=== PATIENT | male | born 1960 | race Caucasian/White ===

== ENCOUNTER → 2017-08-26 | Outpatient (CLI) | payer BC ==
--- NOTE | 2017-08-26 13:34 | Diagnostic Imaging Report ---
INDICATION: Cervicalgia. Limited range of motion. COMPARISON: None. FINDINGS: Frontal, lateral, and odontoid views of the cervical spine were submitted. The cervical spine is visualized up to the C7/T1 level on the lateral projection. There is normal vertebral height and alignment. There is no evidence of fracture or bone destruction. No prevertebral soft tissue swelling is seen. There are mild multilevel degenerative changes consisting of intervertebral disc height loss with anterior and posterior disc osteophyte complex formations. These changes appear greatest at the C6-C7 level. The open-mouth view demonstrates normal C1/C2 alignment. IMPRESSION: 1. No evidence of acute fracture or dislocation of the cervical spine. 2. Mild degenerative changes, greatest at the C6-C7 level. Dictated by: Dictated on workstation # [id number]
== END ==
LOC: RAD 11:04
DX: M47.812 Spondylosis without myelopathy or radiculopathy, cervical region (principal)
CPT/HCPCS: 72040

== ENCOUNTER → 2017-09-03 | Outpatient (CLI) | payer BC ==
--- NOTE | 2017-09-03 10:28 | Diagnostic Imaging Report ---
PROCEDURE: MR imaging cervical spine without contrast. TECHNIQUE: Multiplanar, multisequence MR imaging of the cervical spine was performed without contrast. INDICATION: Neck pain. COMPARISON: Cervical spine radiographs 08/26/2017. FINDINGS: Normal alignment. Vertebral body heights are preserved. Modic type II degenerative endplate changes at C6-C7. Bone marrow signal is otherwise unremarkable. No abnormal signal in the cervical spinal cord. The visualized paravertebral soft tissues are unremarkable. The carotid cervical and vertebral artery flow voids are preserved. C2-C3: No spinal canal or neural foraminal narrowing. C3-C4: No spinal canal narrowing. Uncovertebral joint hypertrophy contributes to moderate left neural foraminal narrowing. C4-C5: Posterior disc osteophyte complex results in mild spinal canal narrowing. Uncovertebral and facet arthropathy result in moderate right and advanced left neural foraminal narrowing. C5-C6: Posterior disc osteophyte complex and ligamentous hypertrophy result in advanced spinal canal narrowing. There is also advanced bilateral neural foraminal narrowing. C6-C7: Posterior disc osteophyte complex and ligamentous hypertrophy result in moderate spinal canal narrowing. Uncovertebral hypertrophy results in advanced bilateral neural foraminal narrowing. C7-T1: Posterior disc osteophyte complex results in moderate spinal canal narrowing. Uncovertebral and facet arthropathy result in advanced right and moderate left neural foraminal narrowing. IMPRESSION: 1. Spondylotic changes result in multilevel spinal canal narrowing which is greatest at C5-C6 where it is advanced. 2. Diffuse moderate and advanced neural foraminal narrowing detailed above. 3. No abnormal signal in the cervical spinal cord. Dictated by: Dictated on workstation # [id number]
== END ==
LOC: RAD 09:16
DX: M48.03 Spinal stenosis, cervicothoracic region (principal); M46.83 Other specified inflammatory spondylopathies, cervicothoracic region; M47.812 Spondylosis without myelopathy or radiculopathy, cervical region
CPT/HCPCS: 72141

== ENCOUNTER → 2017-09-26 | Outpatient (CLI) | payer BC ==
[~2017-09-26] MED LIST: GADOBUTROL 10 MMOL/10 ML (GADAVIST) VIAL IV ONE
--- NOTE | 2017-09-26 15:04 | Diagnostic Imaging Report ---
PROCEDURE: MR imaging of the brain with and without contrast. TECHNIQUE: Multiplanar, multisequence MR imaging of the brain was performed with and without contrast. INDICATION: Headaches. Dizziness. COMPARISON: None. FINDINGS: Mild nonspecific T2 hyperintensities in the supratentorial white matter. Mild generalized cerebral and cerebellar parenchymal volume loss. No other abnormal intracranial signal or enhancement. No restricted water diffusion or hemosiderin deposition. Normal morphology including the major midline structures, sella and cerebellar pontine angle. Borderline cerebellar ectopia without crowding of the foramen magnum. The orbits are unremarkable on this nondedicated exam. Normal intracranial flow voids. No hydrocephalus or extra-axial fluid collections. The paranasal sinuses are clear. Scant fluid in the right mastoid is of doubtful clinical significance. Normal bone marrow signal. IMPRESSION: 1. No acute intracranial MRI findings. 2. 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 3. Incidental findings as above. Dictated by: Dictated on workstation # [id number]
== END ==
LOC: RAD 13:11
DX: G93.89 Other specified disorders of brain (principal)
CPT/HCPCS: 70553

== ENCOUNTER → 2018-03-17 | Outpatient (CLI) | payer BC ==
--- NOTE | 2018-03-17 10:37 | Diagnostic Imaging Report ---
PROCEDURE: MR imaging cervical spine without contrast. TECHNIQUE: Multiplanar, multisequence MR imaging of the cervical spine was performed without contrast. INDICATION: Neck pain. COMPARISON: Comparison made with prior examination 09/03/2017. FINDINGS: The alignment of cervical spine is normal. Vertebral body heights are well-maintained. Prevertebral soft tissues are within normal limits. Posterior fossa is unremarkable. Visualized portions of the spinal cord are normal in signal intensity and morphology. C2-3 is unremarkable. At C3-4, there is some minimal annular bulging and mild left uncovertebral joint hypertrophy. There is slight effacement of the ventral thecal sac and mild left neural foraminal encroachment. C4-5 is unremarkable. At C5-6, there is broad-based annular bulging and bilateral uncovertebral joint hypertrophy. There is moderate central spinal stenosis and at least moderate bilateral neural foraminal encroachment. At C6-7, there is broad-based annular bulging and bilateral uncovertebral joint hypertrophy left greater than right. There is moderate central spinal stenosis with moderate bilateral neural foraminal encroachment. At C7-T1, there is broad-based annular bulging and bilateral uncovertebral joint hypertrophy right greater than left. There is mild central spinal stenosis. There is moderate right and mild left neural foraminal encroachment. IMPRESSION: Diffuse cervical spondylosis and multilevel degenerative disc disease as detailed above. Dictated by: Dictated on workstation # [id number]
== END ==
LOC: RAD 07:52
PROVIDERS: ATTEND Orthopaedic Surgery Orthopaedic Surgery of the Spine
DX: M48.03 Spinal stenosis, cervicothoracic region (principal); M47.812 Spondylosis without myelopathy or radiculopathy, cervical region; M99.71 Connective tissue and disc stenosis of intervertebral foramina of cervical region; M50.23 Other cervical disc displacement, cervicothoracic region; M50.30 Other cervical disc degeneration, unspecified cervical region
CPT/HCPCS: 72141

== ENCOUNTER → 2020-04-11 | Outpatient (CLI) | payer BC ==
[~2020-04-11] MED LIST changes: -GADOBUTROL 10 MMOL/10 ML (GADAVIST) VIAL IV ONE; +HOLD METFORMIN - RECEIVED CONTRAST 20 ML VIAL IV SCH; +IOHEXOL 350 MG/ML 100 ML (OMNIPAQUE 350) VIAL IV ONE; +NS 100 ML (IVPB) BAG IV ONE
--- NOTE | 2020-04-11 09:36 | Diagnostic Imaging Report ---
PROCEDURE: CT neck soft tissue with contrast. TECHNIQUE: Multiple contiguous axial images were obtained through the neck after the administration of contrast. Auto Exposure Controls were utilized during the CT exam to meet ALARA standards for radiation dose reduction. INDICATION: Right-sided swelling COMPARISON: There are no prior studies available for comparison. FINDINGS: Reportedly, the patient has right-sided facial swelling and mass on the right. A marker was placed at the area of concern; however, there is no discrete solid or cystic mass in this region. There does not appear to be any significant distortion of the fat in this area to suggest an inflammatory/infectious process either. There is no mass or adenopathy noted. The submandibular glands are normal in size and symmetrical in appearance. The thyroid gland is not enlarged. The thyroid gland is partially obscured by streak artifact but there is no clear evidence for a thyroid nodule. The lung apices are clear. The bone windows show no evidence for fracture or destructive lesion. There are interbody devices in place at C5-6 and C6-7. The intracranial contents, where visualized, are unremarkable. IMPRESSION: 1. There is no discrete solid or cystic mass in the area of the patient's palpable abnormality in the right neck. Clinical followup is recommended. 2. There is no other mass or adenopathy identified and there is no sign of an acute abnormality. 3. There are post surgical changes involving the cervical spine. Dictated by: Dictated on workstation # [id number]
== END ==
LOC: RAD 08:14
DX: R22.1 Localized swelling, mass and lump, neck (principal); Z98.1 Arthrodesis status
CPT/HCPCS: 70491

== ENCOUNTER → 2020-04-21 | Outpatient (CLI) | payer BC ==
--- NOTE | 2020-04-21 10:10 | Diagnostic Imaging Report ---
INDICATION: Injury to the right shoulder. Time of exam: 9:22 AM 3 views of the right shoulder were obtained. There is normal glenohumeral alignment. There is a normal acromioclavicular alignment. The acromiohumeral space is normal. No fracture or dislocation is identified. Imaging through the lung bases does show a nodular density. This appears to be fairly dense and may represent a granuloma. However, correlation with prior chest radiographs, if available, would be recommended. IMPRESSION: 1. No acute bony abnormality is detected. 2. Nodular density right lung base. This may represent a granuloma. Correlation with prior outside studies is recommended. If no prior imaging is available, close interval follow-up with serial chest radiographs could be obtained to confirm stability. Dictated by: Dictated on workstation # [id number]
--- NOTE | 2020-04-21 10:12 | Diagnostic Imaging Report ---
INDICATION: Pain and injury to the right clavicle. TIME OF EXAM: 9:20 AM 2 views right clavicle were obtained. FINDINGS: The acromioclavicular alignment is normal. The clavicle appears to be intact. No clavicle fracture is identified. IMPRESSION: No acute bony abnormality is detected. Dictated by: Dictated on workstation # [id number]
== END ==
LOC: RAD 09:01
DX: S49.91XA Unspecified injury of right shoulder and upper arm, initial encounter (principal); J98.4 Other disorders of lung
CPT/HCPCS: 73000; 73030

== ENCOUNTER → 2020-12-13 | Outpatient (CLI) | payer BC ==
--- NOTE | 2020-12-13 11:13 | Diagnostic Imaging Report ---
PROCEDURE: MR imaging cervical spine without contrast. TECHNIQUE: Multiplanar, multisequence MR imaging of the cervical spine was performed without contrast. INDICATION: Neck pain. Patient has had prior cervical spine surgery. Correlation is made with preoperative cervical spine MRI from 03/17/2018. Curvature and alignment of the cervical spine is normal. Since the prior study patient has undergone cervical spine surgery. There appear to be postoperative changes with prosthetic discs at the C5-C6 and C6-C7 levels. These do create moderate artifact. Artifact does obscure these levels. Additional levels demonstrate normal marrow signal. No fracture is seen. No geographic marrow lesion is identified. There is some generalized disc desiccation likely owing to degenerative disc disease. The cervical cord does show homogeneous signal intensity and normal morphology. Craniocervical junction is unremarkable. C2-C3: The central canal and neural foramina are widely patent. C3-C4: Central canal and neural foramina appear to be widely patent. C4-C5: Uncovertebral joint degenerative change does produce moderate narrowing of the neural foramina bilaterally. Broad-based disc/osteophyte complex flattens the ventral thecal sac but central canal remains patent. C5-C6: Central canal and neural foramina are patent. C6-C7: This level is obscured by artifact but no gross abnormality is identified. C7-T1: There appears to be bilateral neural foraminal narrowing due to uncovertebral joint degenerative change. Central canal is patent. IMPRESSION: Postop changes at C5-C6 and C6-C7 levels. There is neural foraminal narrowing described level by level above. No significant central canal stenosis is detected. Dictated by: Dictated on workstation # [id number]
== END ==
LOC: RAD 10:15
PROVIDERS: ATTEND Physician Assistant
DX: M48.02 Spinal stenosis, cervical region (principal)
CPT/HCPCS: 72141

== ENCOUNTER → 2021-04-04 | Outpatient (CLI) | payer BC | LOC: LABNPT 06:34 | PROVIDERS: ATTEND Orthopaedic Surgery | DX: Z01.812 Encounter for preprocedural laboratory examination (principal); Z20.822 Contact with and (suspected) exposure to COVID-19 | CPT/HCPCS: 87635 ==

== ENCOUNTER → 2021-06-22 | Outpatient (CLI) | payer BC | LOC: LABNPT 05:58 | PROVIDERS: ATTEND Orthopaedic Surgery | DX: Z01.812 Encounter for preprocedural laboratory examination (principal); Z20.822 Contact with and (suspected) exposure to COVID-19 | CPT/HCPCS: 87635 ==